=== PATIENT | male | born 2000 ===

== ENCOUNTER → 2021-05-20 | Outpatient (CLI) | payer SELFPAY ==
--- NOTE | 2021-05-21 02:24 | REP ---
INDICATION: PAIN COMPARISON: None. TECHNIQUE: AP, lateral, bilateral oblique views left foot. FINDINGS: The osseous structures and joint spaces are intact and normal. There is no evidence for acute fracture or dislocation. Surrounding soft tissues are unremarkable. No subcutaneous emphysema or radiodense foreign body. IMPRESSION: Normal left foot radiograph series. No evidence for acute injury. <Electronically signed by Yung Albert > 05/21/21 [id number]
== END ==
LOC: M WUC 13:56
PROVIDERS: ATTEND Physician Assistant
DX: M79.672 Pain in left foot (principal)